=== PATIENT | female | born 1985 | race Caucasian/White ===

== ENCOUNTER 2023-03-23 08:03 | Emergency (ER) | payer BC ==
[~2023-03-23] VITALS: Ht 162.6 cm; Wt 65.8 kg
[2023-03-23] MEDS ORDERED: MECLIZINE HCL 25 MG TABLET PO ONE (08:30)
[2023-03-23] MEDS ORDERED: IV NS 0.9% 1,000 ML BAG IV ONE ×2 (08:30→10:00)
[2023-03-23] MEDS ORDERED: MECLIZINE HCL 25 MG TABLET ONE (08:33)
[2023-03-23] MEDS ORDERED: ONDANSETRON HCL/PF 4 MG/2 ML VIAL ONE (08:41)
[2023-03-23 08:47] LABS: BASOPHILS % (AUTO) 0.2 % (0.0-2.0); EOSINOPHILS # (AUTO) 0.1 K/uL (0.0-0.7); EOSINOPHILS % (AUTO) 1.2 % (0.0-6.0); HEMATOCRIT 38 % (33-45); HEMOGLOBIN 13.2 g/dL (11.5-14.8); LYMPHOCYTES # (AUTO) 1.6 K/uL (0.8-4.8); LYMPHOCYTES % (AUTO) 19.3 % (20.0-44.0); MEAN CORPUSCULAR HEMOGLOBIN 32 PG (26.0-33.0); MEAN CORPUSCULAR HGB CONC 35 g/dl (31.0-36.0); MEAN CORPUSCULAR VOLUME 91 fL (82-100); MONOCYTES # (AUTO) 0.3 K/uL (0.1-1.30); MONOCYTES % (AUTO) 4.2 % (2.0-12.0); NEUTROPHILS # (AUTO) 6.2 K/uL (1.8-8.9); NEUTROPHILS % (AUTO) 75.1 % (43.0-81.0); PLATELET COUNT (AUTO) 348 K/uL (150-450); RED BLOOD CELL COUNT(AUTO) 4.14 MIL/uL (4.0-5.2); RED CELL DISTRIBUTION WIDTH 12.4 % (11.5-15.0); WHITE BLOOD COUNT (AUTO) 8.2 K/uL (4.3-11.0)
[2023-03-23] MEDS ORDERED: ONDANSETRON HCL/PF 4 MG/2 ML VIAL IV ONE (09:00)
[2023-03-23 09:03] LABS: CALCIUM, SERUM 8.7 mg/dL (8.5-10.1); CREATININE 0.7 mg/dL (0.6-1.3); POTASSIUM 3.9 mmol/L (3.5-5.1)
[2023-03-23 09:09] LABS: ALBUMIN 3.7 g/dL (3.4-5.0); BILIRUBIN,TOTAL 0.6 mg/dL (0.2-1.0); TOTAL PROTEIN, SERUM 7.2 g/dL (6.4-8.2)
[2023-03-23] MEDS ORDERED: IV NS 0.9% 250 ML IV ONE (10:30)
[2023-03-23] MEDS ORDERED: IOHEXOL-300 100 ML VIAL IV ONE (10:30)
[2023-03-23] MEDS ORDERED: MECL-159 PO (12:59)
[2023-03-23] MEDS ORDERED: ONDA4TAB5 PO (12:59)
[2023-03-23 13:13] VITALS: BP 114/71; TEMP 98.2; O2SAT 98
== END 2023-03-23 13:14 | disposition home or self-care (01) ==
LOC: ER 08:05
DX: R42 Dizziness and giddiness (principal); R11.0 Nausea
CPT/HCPCS: 99285; 70498; 96374; 71045; 96361; 93005; 70496; 85025; 36415; 80053; 70450; J8597; J2405; J7030 ×2; J7050; Q9967